=== PATIENT | female | born 1970 | race Hispanic/Latino ===

== ENCOUNTER 2024-09-01 00:35 | Emergency (ER) | payer SELFPAY ==
[~2024-09-01] VITALS: Ht 152.4 cm; Wt 63.5 kg
--- NOTE | 2024-09-01 00:43 | NUR ---
REPORT TO NANETTE SHIPMAN
[2024-09-01 01:13] VITALS: BP 127/78; PULSE 64; RESP 17; TEMP 98.5; O2SAT 99
--- NOTE | 2024-09-01 01:20 | ERN ---
General Chief Complaint: Multiple Complaints Stated Complaint: HYPERTENSION AT HOME Time Seen by MD: 00:44 Source: patient History of Present Illness Initial Comments Patient is a 54-year-old female who just returned home from vacation and felt a little funny and she was concerned that her blood pressure was too high so she comes to the emergency room for evaluation. Systolic blood pressure in the triage was 155 systolic. Blood pressure here in the ED is 127 systolic. Patient feels fine and would like to go home. Allergies: Coded Allergies: No Known Allergies (Unverified Allergy, Unknown, 09/01/24) Past Medical History Past Medical History: Diabetes-Type II, Hypertension, Kidney Stone Past Surgical History: Other, Surgical History Other: KIDNEY STONE Constitutional: (-) chills, (-) diaphoresis, (-) fever, (-) malaise, (-) weakness, (-) other documentation EENTM: (-) eye pain, (-) blurred vision, (-) tearing, (-) double vision, (-) ear pain, (-) ear discharge, (-) nose pain, (-) nose congestion, (-) throat pain, (-) Throat swelling, (-) mouth pain, (-) tooth pain, (-) mouth swelling, (-) other documentation Respiratory: (-) cough, (-) orthopnea, (-) short of breath, (-) stridor, (-) wheezing, (-) other documentation Cardiovascular: (-) chest pain, (-) edema, (-) palpitations, (-) syncope, (-) dyspnea on exertion, (-) other documentation Gastrointestinal/Abdominal: (-) nausea, (-) vomiting, (-) diarrhea, (-) abdominal pain, (-) abdominal distention, (-) constipation, (-) rectal bleeding, (-) dark stool/melena, (-) other documentation Musculoskeletal: (-) Neck pain, (-) back pain, (-) Flank Pain, (-) joint pain, (-) joint swelling, (-) muscle pain, (-) muscle stiffness, (-) gout, (-) other documentation Skin: (-) laceration, (-) contusion, (-) abrasion, (-) abscess, (-) rash, (-) change in color, (-) change in hair, (-) change in nails, (-) diaphoresis, (-) dryness, (-) other documentation Neuro: (-) altered mental status, (-) headache, (-) syncope, (-) paralysis, (-) numbness, (-) seizure, (-) pre-existing deficit, (-) tremors, (-) weakness, (-) dizziness, (-) slurred speech, (-) vertigo, (-) other documentation Physical Exam General Appearance: (+) no apparent distress Orientation: (+) oriented x 3 Head/Face Trauma: No Eye: bilateral eye normal inspection, bilateral eye PERRL, bilateral eye EOMI Ear, Nose, Throat: (+) hearing grossly normal, (+) normal ENT inspection, (+) moist mucous membraine Neck: (+) normal inspection, (+) supple, (+) full range of motion, (+) no JVD Respiratory: (+) chest non-tender, (+) lungs clear, (+) well ventilated Heart: (+) regular, (+) no gallop Vascular: (+) no edema, (+) normal peripheral pulse Gastrointestinal: (+) soft, (+) non-tender, (+) bowel sound present MDM Patient's oxygen saturation on room air is 97%, heart rate is normal, and systolic blood pressure is 127. The patient is medically cleared to be discharged home. ED Course Vital Signs Date Time Temp Pulse Resp B/P (MAP) Pulse Ox O2 Delivery O2 Flow Rate FiO2 09/01/24 00:37 97.5 66 16 155/92 99 Room Air DX & DISP Disposition: Discharge Departure Impression: Primary Impression: Hypertension Condition: Stable Additional Instructions: Please come to the emergency room if your systolic blood pressures greater than 200 and if you feel dizzy lightheaded or with pounding headaches that are a result of this high blood pressure. Referrals: SELF,REFERRAL (PCP) KALIA FRAZIER MD September 01, 2024 01:20
== END 2024-09-01 01:24 | disposition home or self-care (01) ==
LOC: EDH 00:35
DX: I10 Essential (primary) hypertension (principal); E11.9 Type 2 diabetes mellitus without complications; Z98.890 Other specified postprocedural states
CPT/HCPCS: 99281